=== PATIENT | male | born 1945 ===

== ENCOUNTER 2018-09-20 09:30 | Day surgery (SDC) | payer MEDICARE ==
[2018-09-19 11:30] VITALS: BMI 22.2
[2018-09-20] MEDS ORDERED: Midazolam 2 MG/2 ML VIAL ONE (10:57)
[2018-09-20] MEDS ORDERED: Propofol 10 mg/ml Inj (20 ML) ONE ×2 (10:57)
[2018-09-20] MEDS ORDERED: Lactated Ringer's 500 ML IV SCH (11:15)
[2018-09-20 11:46] VITALS: TEMP 97.8
[2018-09-20 12:29] VITALS: O2SAT 100
[2018-09-20 12:31] VITALS: BP 117/69; PULSE 63; RESP 17
== END 2018-09-20 12:35 | disposition home or self-care (01) ==
LOC: C.ENDO 09:30
PROVIDERS: ATTEND Internal Medicine Gastroenterology
DX: K30 Functional dyspepsia (principal); Z12.11 Encounter for screening for malignant neoplasm of colon; R10.13 Epigastric pain; K29.70 Gastritis, unspecified, without bleeding; K64.8 Other hemorrhoids
CPT/HCPCS: 43239; 45378; 88305; J2250; J2704; J7120